=== PATIENT | male | born 1990 | race Caucasian/White ===

== ENCOUNTER 2025-09-30 15:42 | Emergency (ER) | payer OTHER, SELFPAY ==
--- OUTSIDE RECORDS SUMMARY | 2025-09-30 15:43 | XMS_ITS | Clinical Summary ---
Author Organization [facility] Address [address] [place] [id number] Care Team Providers Care Aqua Ammonia Operator Name Role Phone John Valencia MD Primary Care Provider Un available Allergies No known active allergies Medications Bioflavonoid Products (VITAMIN C) CHEW Active Active Problems Problem Noted Date Diagnosed Date CARDIOVASCULAR SCREENING; LDL GOAL LESS THAN 160 09/02/2010 Other, mixed, or unspecified nondependent drug abuse, unspecified 09/08/2006 Immunizations Immunization Administration Dates Next Due HIB (PRP-T) 08/03/1991,02/02/1991,1990 HepB 06/27/2004,04/26/2004,06/01/2002 Historical DTP/aP 08/03/1991,1990,05/29/19 90,1990 MMR (MMRII) 06/01/2002,04/29/1991 Mantoux Tuberculin Skin Test 02/02/1991 OPV, trivalent, live 08/03/1991,1990,03/26 Polio, Unspecified 01/22/1995,08/03/1991, 990,1990 TD,PF 7+ (Tenivac) 06/01/2002 Varicella (Varivax) 09/17/2005,04/03/1996 Family History Medical History Relation Comments Lymphoma Cousin non-Hodgkins No Known Problems Father Cancer Maternal Grandfather tumor Respiratory Maternal Grandmother emphezema No Known Problems Mother Genitourinary Problems Paternal Grandfather Genitourinary Problems Paternal Grandmother Lipids Paternal Grandmother Factor V Leiden deficiency Paternal Uncle Relation Status Comments Cousin Father Alive Maternal Grandfather Maternal Grandmother Mother Alive Paternal Grandfather Paternal Grandmother Paternal Uncle Social History Tobacco Use Types Packs/Day Years Used Date Smoking Tobacco: Former Smokeless Tobacco: Current Chew Tobacco Cessation:Counseling Given: No Alcohol Use Standard Drinks/Week Comments Yes 0 (1 standard drink = 0.6 oz pur e alcohol) Weekends PHQ-2 Answer Date Recorded PHQ-2 Score 0 05/21/2019 Sex and Gender Information Value Date Recorded Sex Assigned at Not on file 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 Gender Identity Not on file Sexual Orientation Not on file Last Filed Vital Signs Vital Sign Reading Time Taken Comments Blood Pressure 122/82 07/26/2019 3:26 PM CDT Pulse 59 07/26/2019 3:00 PM CDT Temperature 36.3 C (97.4 F) 07/26/2019 3:26 PM CDT Respiratory Rate 16 07/26/2019 3:26 PM CDT Oxygen Saturation 100% 07/26/2019 3:26 PM CDT Inhaled Oxygen Concentration - - Weight 60.3 kg (133 lb) 07/26/2019 12:33 PM CDT Height 172.7 cm (5' 8) 07/26/2019 12:33 PM CDT per pt Body Mass Index 20.22 07/26/2019 12:33 PM CDT Plan of Treatment Not on file Insurance [address] [place] [id number] [facility] Care Teams Aqua Ammonia Operator Relationship Specialty Start Date End Date John Valencia MD PCP - General 12/18/01
--- OUTSIDE RECORDS SUMMARY | 2025-09-30 15:43 | XMS_ITS | Clinical Summary ---
Author Organization [facility] Address [facility] [place] [address] Care Team Providers Care Concrete Pipe Maker Name Role Phone Pcp, No Primary Care Provider Unavailabl e Allergies No known active allergies Medications No known medications Active Problems No known active problems Immunizations Immunization Administration Dates Next Due Tdap 06/01/2002 Social History Tobacco Use Types Packs/Day Years Used Date Smoking Tobacco: Never Smokeless Tobacco: Never Alcohol Use Standard Drinks/Week Comments Not Asked 0 (1 standard drink = 0.6 oz pur e alcohol) Sex and Gender Information Value Date Recorded Sex Assigned at Not on file 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 Gender Identity Not on file Sexual Orientation Not on file Obstetrics History Last Filed Vital Signs Vital Sign Reading Time Taken Comments Blood Pressure 108/72 08/23/2011 7:59 PM CDT Pulse 68 08/23/2011 7:59 PM CDT Temperature 36.5 C (97.7 F) 08/23/2011 7:59 PM CDT Respiratory Rate - - Oxygen Saturation - - Inhaled Oxygen Concentration - - Weight 62 kg (136 lb 9.6 oz) 08/23/2011 7:59 PM CDT Height 172.7 cm (5' 8) 08/23/2011 7:59 PM CDT Body Mass Index 20.77 08/23/2011 7:59 PM CDT Plan of Treatment Health Maintenance Due Date Last Done Comments Depression screening for age 12+ 2002 HIV for age 15-65 2005 BMI (ht and wt on same day) for age 18+ 01/27/2008 Hepatitis C screening for ag e 18-79 01/27/2008 Hepatitis B series for 19+ ( 1 of 3 - 19+ 3-dose series) 2009 Tetanus booster 06/01/2012 06/01/2002 HPV series for age 9-45 (1 - 3-dose SCDM series) 2017 Lipids for age 35-44 2025 COVID-19 vaccine series (1 - 2024- season) 2025 Influenza Vaccine (#1) 2025 RSV vaccine for adults or (1 - 1-dose 75+ series) 2065 Pneumococcal series for age 6-49 Aged Out No longer eligible based on patient's age to complete this topic Insurance [facility] [employer] [place] [id number] Care Teams Concrete Pipe Maker Relationship Specialty Start Date End Date Pcp, No . PCP - General 03/19/11
[2025-09-30 15:54] VITALS: BP 124/74; PULSE 70; RESP 18; TEMP 36.7; O2SAT 96
--- NOTE | 2025-09-30 17:16 | ED.ABDPAIN ---
HPI - Abdominal Pain General Time Seen by Provider: 17:16 Date Seen: 09/30/25 Chief Complaint: Abdominal Pain Stated Complaint: Abdominal pain Time Seen by Provider: 09/30/25 17:15 Source: patient and RN notes reviewed Mode of arrival: ambulatory Limitations: no limitations History of Present Illness HPI narrative: This 35-year-old male is coming into the ER with concern of abdominal pain. It started yesterday, hurts more when he is trying to have a bowel movement or if up moving around. He pointed to the right lower quadrant area below his umbilicus to nursing staff in triage where was hurting. He states it hurts when he is just sitting. He is worried he might have a hernia. He rated his pain 7/10 to nursing staff. No fevers or chills, no nausea vomiting or diarrhea. Pain was there mildly yesterday morning when he woke up, has progressed and continued to worsen, feels constant, is in the right lower quadrant. He ate lunch, had 2 brought it is, this was around noon, notice no changes. He has been having normal bowel movements. He notes no changes in urination. He has had no prior abdominal surgeries. He denies any chronic medical issues, states he is healthy, no medications. He has not tried anything like Tylenol or ibuprofen for this. He has a twin brother, they are identical, who has had kidney stones. Patient himself is never had kidney stones. There is a cousin whom has had appendicitis. Related Data Home Medications ?Medication ?Instructions ?Recorded ?Confirmed No Known Home Medications 12/07/22 12/07/22 Allergies Allergy/AdvReac Type Severity Reaction Status Date / Time No Known Drug Allergies Allergy Verified 12/07/22 09:19 Review of Systems Status of ROS Reports: 6 or more systems reviewed and unremarkable except as noted in History and below [facility] Social History Smoking Status: Never smoker How often do you have a drink containing alcohol: 2-4 times a month AUDIT-C Alcohol total score: 2 Non-prescribed substance use: denies use Exam Const: Vital Signs, click to edit/add: Vital Signs - 24 hr 09/30/25 15:54 Temperature 98.1 F Pulse Rate [Pulse Oximeter] 70 Respiratory Rate 18 Blood Pressure [Ri ght Upper Arm] 124/74 Pulse Oximetry 96 Oxygen Delivery Me thod Room Air This 35-year-old male is alert, interactive, no apparent distress. He is lying in the bed looking comfortable in exam room 2. Sclera clear, face atraumatic, symmetrical facial function, speech normal. Lungs are clear, good air entry, no wheezing crackles, tachypnea, no accessory muscle use. CV regular rate and rhythm, no murmur, normal S1-S2. Abdomen is slender, soft, nondistended, normal bowel sounds. He has no palpable organomegaly or masses. He does have right lower quadrant tenderness without rebound or guarding. There is no inguinal mass or pain on palpation. Patient was ambulatory into the ED of his own accord. Skin visualized without rash or jaundice. Documenting provider has reviewed patient's vital signs: yes Course Course ED Course: Reviewed with patient that my initial consideration is concern for appendicitis. He could have other etiologies such as urinary system but does not seem to be consistent with the nature presentation of kidney stone. He could have other etiologies like colon inflammation such as colitis, atypical presentation of diverticulitis of the proximal colon. We will proceed with CT imaging, full complement of labs including urinalysis. Will give him 15 mg IV Toradol to see if that helps with his pain. He is having no nausea, no vomiting. Will give Zofran if there is any change in that. Reevaluation(s) Time of Reevaluation #1: 19:04 Reevaluation #1: Have reviewed patient's CT findings, my discussions with both our hospitalist and surgeon. We reviewed labs. He was constipated about a week and half ago, has not been sense. He had a bowel movement last night but was painful to have this, felt pain in his right lower quadrant with pushing, he states he could just feel it internally. He has not noticed any blood but did not really look. He has not had diarrhea. There has been no fevers, no nausea or vomiting. We reviewed colitis, typically patients will have abdominal pain, can be accompanied by definitely diarrhea, sometimes bloody, sometimes nausea or vomiting with patient's. He has been eating fine. We discussed that this could be harbinger of inflammatory bowel disease like Crohn's or colitis. He does not necessitate hospitalization right now. We will send him with a few tablets of oxycodone and some Toradol. Baseline he is not using NSAIDs, maybe took an ibuprofen a few weeks ago, hardly takes anything. He is not aware of anybody in the family with inflammatory bowel disease. Given his relative paucity of symptoms, I would favor observation with pain management outpatient. He understands he should have a colonoscopy in about 6-8 weeks from resolution of these symptoms. If he were to worsen, we did discuss returning here for further evaluation or even going to a system where gastroenterology is available. We did look in open evidence and there is little evidence to support concern of clinical appendicitis with cecal colitis. Thus, think it is unlikely for his current situation to morphed into appendicitis. Consultations Consultation #1: Have spoken with both our hospitalist and general surgeon, Dr. Corona and Dr. Rossi respectively. Time: 18:52 Vital Signs Vital signs: Initial Vital Signs Temperature 98.1 F 09/30/25 15:54 Temperature Source Temporal Artery Scan 09/30/25 15:54 Pulse Rate 70 09/30/25 15:54 Respiratory Rate 18 09/30/25 15:54 Blood Pressure 124/74 09/30/25 15:54 Blood Pressure Mean 90 09/30/25 15:54 Blood Pressure Position Sitting 09/30/25 15:54 Pulse Oximetry 96 09/30/25 15:54 Oxygen Delivery Method Room Air 09/30/25 15:54 Vital Signs Temperature 98.1 F 09/30/25 15:54 Pulse Rate 70 09/30/25 15:54 Respiratory Rate 18 09/30/25 15:54 Blood Pressure 124/74 09/30/25 15:54 Pulse Oximetry 96 09/30/25 15:54 Oxygen Delivery Method Room Air 09/30/25 15:54 Temperature 98.1 F 09/30/25 15:54 Pulse Rate 70 09/30/25 15:54 Respiratory Rate 18 09/30/25 15:54 Blood Pressure 124/74 09/30/25 15:54 Pulse Oximetry 96 09/30/25 15:54 Oxygen Delivery Method Room Air 09/30/25 15:54 Medications Administered Medications: Discontinued Medications Generic Name Dose Route Start Last Admin Trade Name Freq PRN Reason Stop Dose Admin Ketorolac Tromethamine 15 mg 09/30/25 17:22 09/30/25 17:48 Ketorolac 15 Mg/Ml Inj IVP 09/30/25 17:23 15 mg ONCE ONE Administration MDM - Abdominal Pain Lab Data Attestation: I reviewed the patient's lab results. Labs: Lab Results 09/30/25 09/30/25 Range/Units 17:22 17:30 WBC 10.00 (4.50-11.00) K/uL RBC 5.03 (4.30-5.90) m/uL Hgb 14.8 (13.5-17.5) gm/dL Hct 43.3 (37.0-53.0) % MCV 86 (80-100) fL MCH 29 (26-34) pg MCHC 34 (32-36) gm/dL RDW Coeff of [place] 12.3 (11.5-15.5) % Plt Count 253 (140-440) K/uL Neut % (Auto) 72.4 H (42.0-72.0) % Lymph % (Auto) 18.0 L (20-44) % [place] % (Auto) 8.2 (0.0-11.0) % Eos % (Auto) 0.7 (0.0-7.0) % Baso % (Auto) 0.5 (0.0-3.0) % Neut # (Auto) 7.20 H (1.7-7.0) K/uL Lymph # (Auto) 1.80 (0.90-2.90) K/uL [place] # (Auto) 0.80 (0.00-0.90) K/UL Eos # (Auto) 0.07 (0.00-0.50) K/uL Baso # (Auto) 0.05 (0.00-0.30) K/uL Abs Immat Gran (auto) 0.02 (0.00-0.30) K/uL Imm/Tot Granulo (auto) 0.2 % Sodium 136 (135-149) mmol/L Potassium 4.0 (3.6-5.1) mmol/L Chloride 98 (96-114) mmol/L Carbon Dioxide 28 (20-32) mmol/L Anion Gap 10 (7-15) mEq/L BUN 19 (5-24) mg/dL Creatinine 0.9 (0.5-1.5) mg/dL Estimated GFR 114 ml/min Glucose 91 (60-115) mg/dL Lactate 0.6 (0.5-1.9) mmol/L Calcium 9.2 (8.4-10.6) mg/dL Total Bilirubin 0.6 (0.1-1.5) mg/dL AST 30 (12-35) U/L ALT 31 (4-50) U/L Alkaline Phosphatase 67 (40-150) U/L C-Reactive Protein 1.1 H (0.5-1.0) mg/dL Total Protein 7.4 (6.0-8.3) g/dL Albumin 4.7 (3.3-5.0) g/dL Urine Color Yellow (Yellow) Urine Appearance Clear (Clear) Urine pH 5.5 (5.0-8.5) Ur Specific [place] >= 1.030 (1.000-1.030) Urine Protein Negative (Negative) Urine Glucose (UA) Negative (Negative) Urine Ketones Negative (Negative) Urine Blood Trace-intact A (Negative) Urine Nitrite Negative (Negative) Urine Bilirubin Negative (Negative) Urine Urobilinogen 0.2 (0.2-1.0) Ur Leukocyte Esterase Negative (Negative) Urine RBC 0-2 (0-2) Urine WBC 0-2 (0-5) Ur Squamous Epith Cells None (None-Few) Urine Bacteria None (None) Imaging Data CT scan - abdomen: Attestation: I have reviewed the pertinent imaging results. Radiologist's impression: Patient: UNIQUE CASTELLANOS Facility:?[facility] [place] Patient ID:?[id number] Site Patient ID:?[id number]. Site :?1990 Study:?CT-Abdomen/Pelvis W/IV-09/30/2025 5:42:34 PM Ordering Physician:?Randa Garcia Final Report: INDICATION: Right lower quadrant pain for 1 day TECHNIQUE: CT abdomen and pelvis acquired with 100 cc Omnipaque 350 IV contrast. COMPARISON: None. FINDINGS: Lower chest: The heart size is normal. The lungs are clear. Liver: Unremarkable. Normal in size and attenuation. No suspicious masses. Gallbladder and bile ducts: Unremarkable. No stones or inflammation. No biliary dilatation. Pancreas: Unremarkable. No mass or inflammation. Spleen: Unremarkable. Normal in size. No masses. Adrenal glands: Unremarkable. No nodules. Kidneys: Unremarkable. No suspicious masses, stones, or hydronephrosis. GI tract: No evidence of bowel obstruction. There is wall thickening and mucosal enhancement involving the cecum and ascending colon, for example on series 2, image 68-82. The appendix arises from the inferior aspect of the cecum on series 4 image 32 and terminates medial to the cecum on series 4, image 37. There may be associated inflammation of the base of the appendix, for example on series 4 image 27. The remainder of the appendix is normal. There is a small bowel to small bowel intussusception in the left lower quadrant on series 4, image 42. This is most likely physiologic. Vasculature: Abdominal aorta is normal in caliber. Mesenteric arteries are patent. Lymph nodes: No lymphadenopathy. Peritoneum/Abdominal Wall: Unremarkable. No sign of mass or infiltration. No free air or significant free fluid. Pelvis: The urinary bladder is collapsed, limiting evaluation. Otherwise unremarkable. Bones: No acute abnormality. IMPRESSION: 1. Inflammation of the cecum and ascending colon, reflecting colitis. 2. There may be associated inflammation of the base of the appendix. The remainder of the appendix is normal. No periappendiceal fluid collection. 3. Small bowel-small bowel intussusception in the left lower quadrant. This may be physiologic, although clinical correlation is recommended. Communication has been requested with the ordering provider. An addendum will be signed to document the communication. Please note that all CT scans at this facility use dose modulation, iterative reconstruction, and/or weight-based dosing when appropriate to reduce radiation dose to as low as reasonably achievable. Dictated by Giorgio Nance MD @ 09/30/2025 6:10:29 PM (Electronic Signature) Discharge Plan Discharge Clinical Impression: Colitis Patient Disposition: Home, Self-Care Condition: Stable Instructions: Colitis (ED) Additional Instructions: Diarrhea certainly may appear, it is a frequent symptom of colitis. Use Toradol 10 mg every 6 hours as needed baseline for pain, 20 tablets provided. Can supplement with Tylenol 1000 mg 3 times a day. For severe pain, have provided 8 tablets of oxycodone 5 mg to be used every 6 hours as needed. If you feel that you are more constipated and unable to defecate with your current symptoms, may need to initiate MiraLax. Certainly if you are going on oxycodone, this can be constipating and MiraLax should be used. We usually do see diarrhea in patients with colitis but it is certainly possible that it could manifest differently. You should have a colonoscopy about 6-8 weeks from resolution of these symptoms if you do not require any further interventions in the interim. If you are worsening, abdominal pain is worsening despite pain medicines, develops fevers, have vomiting, developed significant bloody diarrhea, do need to be re-evaluated. Very important to stay hydrated, drink plenty of fluids. Activity Level: Activity as Tolerated Prescriptions: No Action No Known Home Medications Follow Up/Referrals: Provider,Not a Local [Primary Care Provider, Family Practice] Stand Alone Forms: [email or web address] Info Instructions
--- NOTE | 2025-09-30 17:22 | CT_ITS ---
Patient: UNIQUE CASTELLANOS Facility:?[facility] Patient ID:?[id number] Site Patient ID:?[id number]. Site :?1990 Study:?CT-Abdomen/Pelvis W/IV-09/30/2025 5:42:34 PM Ordering Physician:Darryn Garcia Final Report: INDICATION: Right lower quadrant pain for 1 day TECHNIQUE: CT abdomen and pelvis acquired with 100 cc Omnipaque 350 IV contrast. COMPARISON: None. FINDINGS: Lower chest: The heart size is normal. The lungs are clear. Liver: Unremarkable. Normal in size and attenuation. No suspicious masses. Gallbladder and bile ducts: Unremarkable. No stones or inflammation. No biliary dilatation. Pancreas: Unremarkable. No mass or inflammation. Spleen: Unremarkable. Normal in size. No masses. Adrenal glands: Unremarkable. No nodules. Kidneys: Unremarkable. No suspicious masses, stones, or hydronephrosis. GI tract: No evidence of bowel obstruction. There is wall thickening and mucosal enhancement involving the cecum and ascending colon, for example on series 2, image 68-82. The appendix arises from the inferior aspect of the cecum on series 4 image 32 and terminates medial to the cecum on series 4, image 37. There may be associated inflammation of the base of the appendix, for example on series 4 image 27. The remainder of the appendix is normal. There is a small bowel to small bowel intussusception in the left lower quadrant on series 4, image 42. This is most likely physiologic. Vasculature: Abdominal aorta is normal in caliber. Mesenteric arteries are patent. Lymph nodes: No lymphadenopathy. Peritoneum/Abdominal Wall: Unremarkable. No sign of mass or infiltration. No free air or significant free fluid. Pelvis: The urinary bladder is collapsed, limiting evaluation. Otherwise unremarkable. Bones: No acute abnormality. IMPRESSION: 1. Inflammation of the cecum and ascending colon, reflecting colitis. 2. There may be associated inflammation of the base of the appendix. The remainder of the appendix is normal. No periappendiceal fluid collection. 3. Small bowel-small bowel intussusception in the left lower quadrant. This may be physiologic, although clinical correlation is recommended. Communication has been requested with the ordering provider. An addendum will be signed to document the communication. Please note that all CT scans at this facility use dose modulation, iterative reconstruction, and/or weight-based dosing when appropriate to reduce radiation dose to as low as reasonably achievable. Dictated by Giorgio Nance MD @ 09/30/2025 6:10:29 PM ----- ADDENDUM ----- Addendum: A General Surgical consultation is also recommended. These findings were discussed with Dr. Bangura by Dr. Nance on 09/30/2025 at 6:22 PM. Dictated by Giorgio Nance MD @ Sep 30 2025 6:21PM (Electronic Signature)
[2025-09-30 17:44] LABS: Lactate* 0.6 mmol/L (0.5-1.9)
[2025-09-30 17:53] LABS: Hematocrit* 43.3 % (37.0-53.0); Hemoglobin* 14.8 gm/dL (13.5-17.5); Immature Granulocytes Abs Auto 0.02 K/uL (0.00-0.30); Immature Granulocytes Pct Auto 0.2 %; Lymphocytes Absolute Auto 1.80 K/uL (0.90-2.90); Mean Corpuscular HGB Conc 34 gm/dL (32-36); Mean Corpuscular Hemoglobin 29 pg (26-34); Mean Corpuscular Volume 86 fL (80-100); RDW Coefficient of Variation % 12.3 % (11.5-15.5); Red Blood Count* 5.03 m/uL (4.30-5.90); White Blood Count* 10.00 K/uL (4.50-11.00)
[2025-09-30 17:53] LABS: Appearance Urine Clear (Clear)
[2025-09-30 17:56] LABS: Slide Review Reflex No
[2025-09-30 18:25] LABS: Albumin* 4.7 g/dL (3.3-5.0); Chloride* 98 mmol/L (96-114); Potassium* 4.0 mmol/L (3.6-5.1); Sodium* 136 mmol/L (135-149)
[2025-09-30 18:28] LABS: Alanine Aminotransferase* 31 U/L (4-50); Aspartate Amino Transferase* 30 U/L (12-35); Blood Urea Nitrogen* 19 mg/dL (5-24); Creatinine* 0.9 mg/dL (0.5-1.5); Estimated Glomerular Filt Rate 114 ml/min
[2025-09-30 18:29] LABS: Alkaline Phosphatase* 67 U/L (40-150); Anion Gap 10 mEq/L (7-15); Bilirubin Total* 0.6 mg/dL (0.1-1.5); Calcium* 9.2 mg/dL (8.4-10.6); Carbon Dioxide* 28 mmol/L (20-32); Glucose* 91 mg/dL (60-115); Total Protein* 7.4 g/dL (6.0-8.3)
[2025-09-30 19:14] VITALS: BP 113/85; PULSE 52; RESP 16; O2SAT 96
== END 2025-09-30 19:22 | disposition home or self-care (01) ==
PROVIDERS: Emergency Provider Family Medicine
DX: K52.9 Noninfective gastroenteritis and colitis, unspecified (principal)
CPT/HCPCS: 36415; 74177; 80053; 81001; 83605; 85025; 86140; 96374; 99284; 99285; J1885; Q9967